=== PATIENT | male | born 1935 | race Caucasian/White ===

== ENCOUNTER 2016-08-09 12:34 | Day surgery (SDC) | payer OTHER ==
[~2016-08-09] VITALS: Ht 170.2 cm; Wt 90.9 kg
[~2016-08-09 12:34] MED LIST: ADVIL200 MG; ADVIL200 MG PO; AMLODIPINE BESYL5 MG; BUTALB-APAP-CA1 EACH; CLARITIN; CYANOCOBALAM1000 MCG PO; Claritin,Alavart PO; FERGON324 MG PO; MILK OF MAGN PO; NEURONTIN100 MG PO; NORVASC5 MG PO; Norvasc PO; OMEPRAZOLE40 M1 PO; Protonix PO; SIMVASTATIN40 MG PO; TYLENOL EXTRA500 MG PO; XYZAL5 MG PO; [UNRECOGNIZED DRUG - REMARK]
== END 2016-08-09 14:36 | disposition home or self-care (01) ==
LOC: PAIN 12:34 → SDC 13:15 → PAIN 14:36
DX: M47.26 Other spondylosis with radiculopathy, lumbar region (principal); M51.16 Intervertebral disc disorders with radiculopathy, lumbar region; G89.29 Other chronic pain; M54.5 Low back pain; I10 Essential (primary) hypertension; D50.0 Iron deficiency anemia secondary to blood loss (chronic); E78.00 Pure hypercholesterolemia, unspecified; K21.9 Gastro-esophageal reflux disease without esophagitis; Z87.891 Personal history of nicotine dependence; Z85.51 Personal history of malignant neoplasm of bladder
CPT/HCPCS: J1100; J3010; S0020

== ENCOUNTER 2016-09-06 12:00 | Day surgery (SDC) | payer OTHER ==
[~2016-09-06] VITALS: Ht 170.2 cm; Wt 90.7 kg
== END 2016-09-06 14:17 | disposition home or self-care (01) ==
LOC: PAIN 12:00 → SDC 12:30 → PAIN 12:30
DX: M47.26 Other spondylosis with radiculopathy, lumbar region (principal); M51.16 Intervertebral disc disorders with radiculopathy, lumbar region; G89.29 Other chronic pain; M54.5 Low back pain; D50.0 Iron deficiency anemia secondary to blood loss (chronic); M54.2 Cervicalgia; K21.9 Gastro-esophageal reflux disease without esophagitis; I10 Essential (primary) hypertension; E78.00 Pure hypercholesterolemia, unspecified
CPT/HCPCS: J1030; J1100; J3010; S0020

== ENCOUNTER → 2016-12-12 | Outpatient (CLI) | payer OTHER ==
[~2016-12-12] VITALS: Ht 170.2 cm; Wt 89.4 kg
[~2016-12-12] MED LIST changes: +BUTALB-ASPIRIN1 EACH PO; +FLONASE16 G1 BOTH NARES; +LIPITOR20 MG PO; +PRILOSEC20 MG PO
[2016-12-12 08:25] LABS: EOSINOPHIL (%) 5.9 % (0-5); EOSINOPHIL COUNT 0.4 K/uL (0-0.3); IMMATURE GRANULOCYTE (%) 0.2 % (0.0-0.7); INSTRUMENT ABS NEUTROPHIL CT 3.8 K/uL; LYMPHOCYTE COUNT 1.1 K/uL (1.0-2.8); MCH 31.2 PG (29.0-34.0); MCHC 33.3 G/DL (30.0-36.0); MCV 93.9 FL (86-99); MEAN PLAT.VOLUME 9.9 uM^3 (9.0-12.4); MONOCYTE (%) 10.3 % (3-12); MONOCYTE COUNT 0.6 K/uL (0-0.8); NEUTROPHIL (%) 64.9 % (45-76); NEUTROPHIL COUNT 3.8 K/uL (1.8-6.4); PLATELET COUNT 259 K/uL (156-360); RBC DIS.WIDTH-CV 13.8 % (11.8-14.6); RBC DIS.WIDTH-SD 47.8 % (39-53); RED BLOOD COUNT 4.26 M/uL (4.00-5.50); WHITE BLOOD COUNT 5.9 K/uL (4.1-10.2)
== END | disposition home or self-care (01) ==
LOC: OPR 07:49 → EDSTATUS 09:00
PROVIDERS: Family Medicine
PROC: 07DR3ZX Extraction of Iliac Bone Marrow, Percutaneous Approach, Diagnostic (ICD-10-PCS; principal; 2016-12-12)
DX: D72.1 Eosinophilia (principal); C67.9 Malignant neoplasm of bladder, unspecified
CPT/HCPCS: 77012; 85025; J2250; J2310; J3010

== ENCOUNTER 2017-04-02 14:56 | Inpatient (IN) | payer OTHER ==
[~2017-04-02] VITALS: Ht 165.1 cm; Wt 91.2 kg
[~2017-04-02 14:56] MED LIST changes: -BUTALB-ASPIRIN1 EACH PO
[2017-04-02 15:22] LABS: HEMATOCRIT 35.3 % (38.0-50.0); HEMOGLOBIN 11.4 G/DL (12.5-16.6); MCH 28.7 PG (29.0-34.0); MCHC 32.3 G/DL (30.0-36.0); MCV 88.9 FL (86-99); PLATELET COUNT 291 K/uL (156-360); RBC DIS.WIDTH-CV 14.3 % (11.8-14.6); RED BLOOD COUNT 3.97 M/uL (4.00-5.50); WHITE BLOOD COUNT 7.6 K/uL (4.1-10.2)
[2017-04-02 15:34] LABS: CHLORIDE 105 mEq/L (99-109); POTASSIUM 3.4 mEq/L (3.7-5.4); SODIUM 137 mEq/L (136-147)
[2017-04-02 15:36] LABS: GLUCOSE 101 mg/dL (70-99)
[2017-04-02 15:40] LABS: CREATININE 1.2 mg/dL (0.6-1.3); GFR ESTIMATE (CALCULATED) > 59 mL/min/ (58.99-99999)
[2017-04-02 15:41] LABS: UREA NITROGEN (BUN) 15 mg/dL (9-23)
[2017-04-02 15:48] LABS: TROP-I INTERPRETATION NEGATIVE; TROPONIN-I < 0.01 ng/mL (0.0-0.30)
[2017-04-02 18:45] LABS: TROP-I INTERPRETATION NEGATIVE; TROPONIN-I < 0.01 ng/mL (0.0-0.30)
[2017-04-02] MEDS ORDERED: AMITRIPTYLINE H25 MG PO (19:12)
[2017-04-02] MEDS ORDERED: LEVOCETIRIZINE D5 MG PO (19:14)
[2017-04-02] MEDS ORDERED: ATORVASTATIN CA20 MG PO (19:15)
[2017-04-02] MEDS ORDERED: GABAPENTIN100 MG PO (19:16)
[2017-04-02] MEDS ORDERED: GABAPENTIN300 MG PO (19:18)
[2017-04-02] MEDS ORDERED: OMEPRAZOLE20 MG PO (19:20)
[2017-04-02] MEDS ORDERED: MONTELUKAST SOD10 MG PO (19:25)
[2017-04-02] MEDS ORDERED: BUTALB-ASPIRIN1 EACH PO (19:25)
[2017-04-02] MEDS ORDERED: CORICIDIN HBP1 EAC4 PO (19:27)
[2017-04-02 22:11] VITALS: BP 168/94
[2017-04-03] VITALS (8 sets, daily range): BP systolic 107–153; BP diastolic 61–85
[2017-04-03 05:14] LABS: HEMATOCRIT 33.3 % (38.0-50.0); HEMOGLOBIN 10.7 G/DL (12.5-16.6); MCH 28.9 PG (29.0-34.0); MCHC 32.1 G/DL (30.0-36.0); PLATELET COUNT 254 K/uL (156-360); RBC DIS.WIDTH-CV 14.6 % (11.8-14.6); RBC DIS.WIDTH-SD 47.5 % (39-53)
[2017-04-03 05:32] LABS: TROP-I INTERPRETATION NEGATIVE; TROPONIN-I < 0.01 ng/mL (0.0-0.30)
[2017-04-03 05:39] LABS: CHLORIDE 107 MEQ/L (99-109); CREATININE 1.2 MG/DL (0.6-1.3); GFR ESTIMATE (CALCULATED) > 59 mL/min/ (58.99-99999); GLUCOSE 121 mg/dL (70-99); SODIUM 141 MEQ/L (136-147); UREA NITROGEN (BUN) 14 mg/dL (9-23)
[2017-04-03 13:12] LABS: TROP-I INTERPRETATION NEGATIVE; TROPONIN-I < 0.01 ng/mL (0.0-0.30)
[2017-04-04] VITALS (14 sets, daily range): BP systolic 123–154; BP diastolic 69–85
[2017-04-04 19:11] LABS: TYPE OF FLUID PERICARDIAL
[2017-04-04 20:02] LABS: BODY FLUID GLUCOSE 73 MG/DL; BODY FLUID LDH 4478 IU/L; BODY FLUID PROTEIN 4.6 G/DL
[2017-04-04 20:31] LABS: APPEARANCE DARK RED-BLOODY; BODY FLUID RBC'S 870000 /MM^3 (0-100); BODY FLUID WBC'S 2444 /MM^3 (0-500)
[2017-04-04 22:27] LABS: BODY FLUID EOSINOPHILS 5 % (0-25); MONONUCLEAR WBC'S 87 %; POLYNUCLEAR WBC'S 8 % (0-25)
[2017-04-04 22:41] LABS: BODY FL. SPEC. GRAV. 1.033
[2017-04-05] VITALS (15 sets, daily range): BP systolic 95–131; BP diastolic 58–96
[2017-04-05 05:18] LABS: BASOPHIL (%) 0.7 % (0-1); BASOPHIL COUNT 0.1 K/uL (0-0.1); EOSINOPHIL (%) 3.3 % (0-5); EOSINOPHIL COUNT 0.2 K/uL (0-0.3); HEMATOCRIT 32.8 % (38.0-50.0); HEMOGLOBIN 10.4 G/DL (12.5-16.6); IMMATURE GRANULOCYTE (%) 0.3 % (0.0-0.7); LYMPHOCYTE (%) 8.4 % (15-42); LYMPHOCYTE COUNT 0.6 K/uL (1.0-2.8); MCH 28.6 PG (29.0-34.0); MCHC 31.7 G/DL (30.0-36.0); MCV 90.1 FL (86-99); MONOCYTE (%) 10.6 % (3-12); MONOCYTE COUNT 0.7 K/uL (0-0.8); NEUTROPHIL (%) 76.7 % (45-76); NEUTROPHIL COUNT 5.3 K/uL (1.8-6.4); PLATELET COUNT 304 K/uL (156-360); RBC DIS.WIDTH-CV 14.5 % (11.8-14.6); RBC DIS.WIDTH-SD 47.9 % (39-53); RED BLOOD COUNT 3.64 M/uL (4.00-5.50); WHITE BLOOD COUNT 6.9 K/uL (4.1-10.2)
[2017-04-05 05:43] LABS: GFR ESTIMATE (CALCULATED) > 59 mL/min/ (58.99-99999); GLUCOSE 130 mg/dL (70-99); SODIUM 139 MEQ/L (136-147); UREA NITROGEN (BUN) 18 mg/dL (9-23)
[2017-04-05 05:44] LABS: CHLORIDE 104 MEQ/L (99-109)
[2017-04-06] VITALS (9 sets, daily range): BP systolic 97–168; BP diastolic 60–97
[2017-04-06 04:34] LABS: HEMATOCRIT 31.3 % (38.0-50.0); HEMOGLOBIN 10.2 G/DL (12.5-16.6); MCH 28.9 PG (29.0-34.0); MCHC 32.6 G/DL (30.0-36.0); MCV 88.7 FL (86-99); PLATELET COUNT 289 K/uL (156-360); RBC DIS.WIDTH-CV 14.5 % (11.8-14.6); RBC DIS.WIDTH-SD 46.8 % (39-53); RED BLOOD COUNT 3.53 M/uL (4.00-5.50); WHITE BLOOD COUNT 6.3 K/uL (4.1-10.2)
[2017-04-06 04:51] LABS: CHLORIDE 104 mEq/L (99-109); POTASSIUM 3.7 mEq/L (3.7-5.4); SODIUM 137 mEq/L (136-147)
[2017-04-06 04:53] LABS: GLUCOSE 114 mg/dL (70-99)
[2017-04-06 04:57] LABS: CREATININE 1.1 mg/dL (0.6-1.3); GFR ESTIMATE (CALCULATED) > 59 mL/min/ (58.99-99999)
[2017-04-06 04:58] LABS: UREA NITROGEN (BUN) 14 mg/dL (9-23)
[2017-04-06 19:07] LABS: TROP-I INTERPRETATION NEGATIVE; TROPONIN-I 0.08 ng/mL (0.0-0.30)
[2017-04-07] VITALS (8 sets, daily range): BP systolic 107–130; BP diastolic 62–78
[2017-04-07 05:56] LABS: BASOPHIL (%) 0.5 % (0-1); EOSINOPHIL (%) 10.6 % (0-5); EOSINOPHIL COUNT 0.5 K/uL (0-0.3); HEMATOCRIT 31.1 % (38.0-50.0); HEMOGLOBIN 9.8 G/DL (12.5-16.6); IMMATURE GRANULOCYTE (%) 0.5 % (0.0-0.7); LYMPHOCYTE (%) 13.8 % (15-42); LYMPHOCYTE COUNT 0.6 K/uL (1.0-2.8); MCH 27.8 PG (29.0-34.0); MCHC 31.5 G/DL (30.0-36.0); MCV 88.4 FL (86-99); MONOCYTE (%) 12.4 % (3-12); MONOCYTE COUNT 0.5 K/uL (0-0.8); NEUTROPHIL (%) 62.2 % (45-76); NEUTROPHIL COUNT 2.7 K/uL (1.8-6.4); PLATELET COUNT 338 K/uL (156-360); RBC DIS.WIDTH-CV 14.4 % (11.8-14.6); RED BLOOD COUNT 3.52 M/uL (4.00-5.50); WHITE BLOOD COUNT 4.3 K/uL (4.1-10.2)
[2017-04-07 06:13] LABS: TROP-I INTERPRETATION NEGATIVE; TROPONIN-I 0.04 ng/mL (0.0-0.30)
[2017-04-07 06:17] LABS: CHLORIDE 102 MEQ/L (99-109); CREATININE 0.9 MG/DL (0.6-1.3); GFR ESTIMATE (CALCULATED) > 59 mL/min/ (58.99-99999); GLUCOSE 94 mg/dL (70-99); POTASSIUM 4.3 MEQ/L (3.7-5.4); SODIUM 138 MEQ/L (136-147); UREA NITROGEN (BUN) 16 mg/dL (9-23)
[2017-04-08] VITALS (9 sets, daily range): BP systolic 82–151; BP diastolic 55–78
[2017-04-08 05:16] LABS: BASOPHIL (%) 0.5 % (0-1); EOSINOPHIL (%) 14.4 % (0-5); EOSINOPHIL COUNT 0.6 K/uL (0-0.3); HEMATOCRIT 30.5 % (38.0-50.0); HEMOGLOBIN 9.5 G/DL (12.5-16.6); IMMATURE GRANULOCYTE (%) 0.2 % (0.0-0.7); LYMPHOCYTE (%) 17.5 % (15-42); LYMPHOCYTE COUNT 0.7 K/uL (1.0-2.8); MCH 27.5 PG (29.0-34.0); MCHC 31.1 G/DL (30.0-36.0); MCV 88.4 FL (86-99); MONOCYTE (%) 13.7 % (3-12); MONOCYTE COUNT 0.6 K/uL (0-0.8); NEUTROPHIL (%) 53.7 % (45-76); NEUTROPHIL COUNT 2.2 K/uL (1.8-6.4); PLATELET COUNT 354 K/uL (156-360); RBC DIS.WIDTH-CV 14.3 % (11.8-14.6); RBC DIS.WIDTH-SD 45.7 % (39-53); RED BLOOD COUNT 3.45 M/uL (4.00-5.50); WHITE BLOOD COUNT 4.2 K/uL (4.1-10.2)
[2017-04-08 05:44] LABS: CHLORIDE 103 MEQ/L (99-109); CREATININE 0.9 MG/DL (0.6-1.3); GFR ESTIMATE (CALCULATED) > 59 mL/min/ (58.99-99999); GLUCOSE 93 mg/dL (70-99); POTASSIUM 3.8 MEQ/L (3.7-5.4); SODIUM 138 MEQ/L (136-147); UREA NITROGEN (BUN) 14 mg/dL (9-23)
[2017-04-09 04:12] VITALS: BP 145/65
[2017-04-09 06:19] LABS: BASOPHIL (%) 0.9 % (0-1); BASOPHIL COUNT 0.1 K/uL (0-0.1); EOSINOPHIL (%) 10.4 % (0-5); EOSINOPHIL COUNT 0.6 K/uL (0-0.3); HEMATOCRIT 36.7 % (38.0-50.0); IMMATURE GRANULOCYTE (%) 0.4 % (0.0-0.7); LYMPHOCYTE COUNT 1.1 K/uL (1.0-2.8); MCH 27.5 PG (29.0-34.0); MCHC 31.3 G/DL (30.0-36.0); MCV 87.8 FL (86-99); MONOCYTE COUNT 0.7 K/uL (0-0.8); NEUTROPHIL (%) 55.3 % (45-76); NEUTROPHIL COUNT 3.2 K/uL (1.8-6.4); RBC DIS.WIDTH-CV 14.4 % (11.8-14.6); WHITE BLOOD COUNT 5.7 K/uL (4.1-10.2)
[2017-04-09 06:21] LABS: HEMOGLOBIN 11.5 G/DL (12.5-16.6); PLATELET COUNT 504 K/uL (156-360); RED BLOOD COUNT 4.18 M/uL (4.00-5.50)
[2017-04-09 06:33] LABS: CHLORIDE 101 MEQ/L (99-109); GFR ESTIMATE (CALCULATED) > 59 mL/min/ (58.99-99999); GLUCOSE 100 mg/dL (70-99); POTASSIUM 3.4 MEQ/L (3.7-5.4); SODIUM 137 MEQ/L (136-147); UREA NITROGEN (BUN) 14 mg/dL (9-23)
[2017-04-09 08:24] VITALS: BP 131/65
[2017-04-09] MEDS ORDERED: ASPIRIN EC325 MG PO (11:43)
[2017-04-09] MEDS ORDERED: SPIRIVA18 MCG IH (11:46)
[2017-04-09] MEDS ORDERED: ENDOCET 5-3251 EACH PO (11:48)
[2017-04-09 11:52] VITALS: BP 125/68
[2017-04-09] MEDS ORDERED: MUCINEX DM ER1 EACH PO (11:53)
[2017-04-09 15:51] VITALS: BP 119/65
[2017-04-11 21:52] LABS: QGTB-NIL 0.02 IU/mL (()); QUANTIFERON TB GOLD NEGATIVE (Negative)
== END 2017-04-09 16:27 | disposition home health service (06) | DRG 272 ==
LOC: EME 14:56 → 5WEST 19:42 → EDOF 19:42 → ENRESERV 19:46 → 5WEST 21:27 → 4WEST 04-03 13:46 → 5WEST 04-03 13:46 → ENRESERV 04-03 13:48 → 4EAST 04-03 15:00 → ENRESERV 04-04 09:57 → 4EAST 04-04 17:09 → 4WEST 04-04 19:08 → ENRESERV 04-08 10:05 → 4EAST 04-08 12:16 → ENPENDDIS 04-09 → 4EAST 04-09 14:31
PROVIDERS: Emergency Medicine; Hospitalist; Internal Medicine; Physician Assistant Medical; Surgery; Thoracic Surgery (Cardiothoracic Vascular Surgery)
PROC: 0W9D00Z Drainage of Pericardial Cavity with Drainage Device, Open Approach (ICD-10-PCS; principal; 2017-04-04)
DX: I31.3 Pericardial effusion (noninflammatory) (principal); I31.0 Chronic adhesive pericarditis; I31.4 Cardiac tamponade; J32.9 Chronic sinusitis, unspecified; R07.89 Other chest pain; G89.12 Acute post-thoracotomy pain; G47.00 Insomnia, unspecified; I27.20 Pulmonary hypertension, unspecified; I10 Essential (primary) hypertension; E78.5 Hyperlipidemia, unspecified; K29.70 Gastritis, unspecified, without bleeding; K21.9 Gastro-esophageal reflux disease without esophagitis; K27.9 Peptic ulcer, site unspecified, unspecified as acute or chronic, without hemorrhage or perforation; M19.90 Unspecified osteoarthritis, unspecified site; D64.9 Anemia, unspecified; Z79.1 Long term (current) use of non-steroidal anti-inflammatories (NSAID); Z85.51 Personal history of malignant neoplasm of bladder; Z90.6 Acquired absence of other parts of urinary tract; Z90.79 Acquired absence of other genital organ(s); Z90.49 Acquired absence of other specified parts of digestive tract; Z93.2 Ileostomy status; Z87.891 Personal history of nicotine dependence; Z82.49 Family history of ischemic heart disease and other diseases of the circulatory system
CPT/HCPCS: 71045; 71046; 71250; 71275; 74176; 80048; 82945; 82948; 83615 91; 84157; 84315; 84484; 85025; 85027; 85379; 86038; 86480 90; 87070; 87075; 87102; 87116; 87205; 87206; 87641; 88108; 88305; 89051; 93005; 93306; 94010; 94640; 94640 76; 94760; 94799; 97530 GO; 97530 GP; 99202; 99281; 99285; G0378; J0330; J0690; J1170; J1644; J1885; J2270; J2405; J2550; J3010; J7120

== ENCOUNTER 2017-04-28 13:06 | Emergency (ER) | payer OTHER ==
[~2017-04-28] VITALS: Ht 165.1 cm; Wt 86.3 kg
[~2017-04-28 13:06] MED LIST changes: +AMITRIPTYLINE H25 MG PO; +ASPIRIN EC325 MG PO; +ATORVASTATIN CA20 MG PO; +BUTALB-ASPIRIN1 EACH PO; +CORICIDIN HBP1 EAC4 PO; +ENDOCET 5-3251 EACH PO; +GABAPENTIN100 MG PO; +GABAPENTIN300 MG PO; +LEVOCETIRIZINE D5 MG PO; +MONTELUKAST SOD10 MG PO; +MUCINEX DM ER1 EACH PO; +OMEPRAZOLE20 MG PO; +SPIRIVA18 MCG IH
[2017-04-28 14:08] LABS: HEMATOCRIT 37.2 % (38.0-50.0); MCH 28.2 PG (29.0-34.0); MCHC 32.3 G/DL (30.0-36.0); MCV 87.5 FL (86-99); RBC DIS.WIDTH-CV 15.2 % (11.8-14.6); RBC DIS.WIDTH-SD 48.5 % (39-53); RED BLOOD COUNT 4.25 M/uL (4.00-5.50); WHITE BLOOD COUNT 4.3 K/uL (4.1-10.2)
[2017-04-28 14:22] LABS: CHLORIDE 107 mEq/L (99-109); SODIUM 140 mEq/L (136-147)
[2017-04-28 14:24] LABS: GLUCOSE 99 mg/dL (70-99)
[2017-04-28 14:28] LABS: CREATININE 1.1 mg/dL (0.6-1.3); GFR ESTIMATE (CALCULATED) > 59 mL/min/ (58.99-99999)
[2017-04-28 14:29] LABS: UREA NITROGEN (BUN) 9 mg/dL (9-23)
[2017-04-28 14:49] LABS: HEMATOLOGY COMMENT 1 SN; PLAT.SUFFICIENCY ADEQUATE
[2017-04-28 14:50] LABS: PLATELET COUNT 270 K/uL (156-360)
[2017-04-28 17:01] LABS: TROP-I INTERPRETATION NEGATIVE; TROPONIN-I < 0.01 ng/mL (0.0-0.30)
[2017-04-28 17:50] VITALS: BP 118/71
== END 2017-04-28 18:04 | disposition home or self-care (01) ==
LOC: EME 13:06
DX: R55 Syncope and collapse (principal); E78.5 Hyperlipidemia, unspecified; G43.909 Migraine, unspecified, not intractable, without status migrainosus; I10 Essential (primary) hypertension; Z79.82 Long term (current) use of aspirin; Z87.891 Personal history of nicotine dependence
CPT/HCPCS: 70450; 71046; 80048; 84484; 85027; 93005; 99281; 99284